=== PATIENT | female | born 1965 | race Hispanic/Latino ===

== ENCOUNTER 2024-05-02 14:10 | Emergency (ER) | payer OTHER, BC ==
[~2024-05-02] VITALS: Ht 152.4 cm; Wt 59.0 kg
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
[2024-05-02 15:12] VITALS: BP 115/60; PULSE 70; RESP 16; TEMP 98.3; O2SAT 98
[2024-05-02] MEDS: acetaMINOPHEN 325 MG TAB PO ONE (16:07)
[2024-05-02] MEDS: ORPHENADRINE 60MG/2ML IM ONE (16:07)
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
== END 2024-05-02 16:55 | disposition home or self-care (01) ==
LOC: EDH 14:10
DX: M54.2 Cervicalgia (principal); E78.00 Pure hypercholesterolemia, unspecified; Z88.0 Allergy status to penicillin; Z88.2 Allergy status to sulfonamides; V49.69XA Unspecified car occupant injured in collision with other motor vehicles in traffic accident, initial encounter; Y93.89 Activity, other specified; Y92.488 Other paved roadways as the place of occurrence of the external cause; Y99.8 Other external cause status
CPT/HCPCS: 72040; 99283